=== PATIENT | male | born 1990 | race African-American/Black ===

== ENCOUNTER 2017-11-05 05:17 | Emergency (ER) | payer SELFPAY ==
[2017-11-05] MEDS ORDERED: DIPH/PERTUSS(ACELL)/TETANUS VAC/PF 0.5 ML SYR (>=10YO) IM ONE (05:34)
[2017-11-05] MEDS ORDERED: FENTANYL CITRATE INJ/PF 100 MCG/2 ML AMPUL IV ONE (05:35)
[2017-11-05] MEDS ORDERED: CEFAZOLIN 1 GM/D5W RTU 1 GM/50 ML RTUPB IV ONE (05:37)
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
[2017-11-05 06:05] LABS: ABSOLUTE BASOPHILS # (AUTO) 0.1 10^3/uL (0.0-0.2); ABSOLUTE LYMPHOCYTES (AUTO) 1.8 10^3/uL (0.5-4.7); ABSOLUTE MONOCYTES (AUTO) 0.8 10^3/uL (0.1-1.4); BASOPHILS % (AUTO) 0.9 % (0-2); EOSINOPHILS % (AUTO) 0.6 % (0-6); HEMATOCRIT 44.5 % (37.9-51.0); HEMOGLOBIN 14.8 g/dL (13.5-17.0); MEAN CORPUSCULAR HEMOGLOBIN 29.1 pg (27.0-33.4); MEAN CORPUSCULAR HGB CONC 33.3 g/dL (32.0-36.0); MEAN CORPUSCULAR VOLUME 87 fl (80-97); MONOCYTES % (AUTO) 12.1 % (3-13); PLATELET COUNT 346 10^3/uL (150-450); RED BLOOD COUNT 5.09 10^6/uL (4.35-5.55); SEGMENTED NEUTROPHILS % (AUTO) 59.4 % (42-78); TOTAL CELLS COUNTED % (AUTO) 100 %; WHITE BLOOD COUNT 6.7 10^3/uL (4.0-10.5)
[2017-11-05 06:28] LABS: ANION GAP 16 (5-19); BLOOD UREA NITROGEN 12 mg/dL (7-20); CALCIUM 9.8 mg/dL (8.4-10.2); CARBON DIOXIDE 23 mmol/L (22-30); CHLORIDE 104 mmol/L (98-107); GLUCOSE 77 mg/dL (75-110); SODIUM 142.7 mmol/L (137-145)
[2017-11-05 06:36] LABS: POTASSIUM 4.3 mmol/L (3.6-5.0)
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
[2017-11-05] MEDS ORDERED: LIDOCAINE 1% INJ-PF (10 MG/ML) 30 ML SDV INJ ONE (07:44)
[2017-11-05 08:44] VITALS: BP 147/93
== END 2017-11-05 08:44 | disposition home or self-care (01) ==
LOC: ER 05:17
PROC: 0JCP0ZZ Extirpation of Matter from Left Lower Leg Subcutaneous Tissue and Fascia, Open Approach (ICD-10-PCS; principal; 2017-11-05)
DX: S81.042A Puncture wound with foreign body, left knee, initial encounter (principal); M79.1 Myalgia; F17.210 Nicotine dependence, cigarettes, uncomplicated; X95.9XXA Assault by unspecified firearm discharge, initial encounter; Z23 Encounter for immunization
CPT/HCPCS: 99284; 90471; 96375; 96365; 36415; 85025; 80048; 73562; 73706; 90715; 20103; J0690; J3010; J3490